=== PATIENT | female | born 2005 | race Two or more races ===

== ENCOUNTER 2023-01-16 23:10 | Emergency (ER) | payer OTHER ==
[~2023-01-16] VITALS: Ht 162.6 cm; Wt 67.1 kg
== END 2023-01-17 00:51 | disposition home or self-care (01) ==
LOC: EMR PED 23:10 → ER 23:18 → EMR PED 23:18 → ER 01-17 00:51
DX: S91.201A Unspecified open wound of right great toe with damage to nail, initial encounter (principal); X58.XXXA Exposure to other specified factors, initial encounter; Y93.F1 Activity, caregiving, bathing; Y92.012 Bathroom of single-family (private) house as the place of occurrence of the external cause